=== PATIENT | female | born 2000 | race African-American/Black ===

== ENCOUNTER 2023-09-21 17:35 | Emergency (ER) | payer SELFPAY ==
[2023-09-21] MEDS ORDERED: NA CHLORIDE 0.9% 1,000 ML ONE (18:04)
[2023-09-21] MEDS ORDERED: KETOROLAC 30 MG/ML INJ ONE (18:04)
[2023-09-21] MEDS ORDERED: ONDANSETRON 4 MG/2 ML VIAL ONE (18:04)
[2023-09-21 18:05] LABS: Specific Gravity 1.014 (1.005-1.030)
[2023-09-21 18:25] LABS: Absolute Lymphocytes (CBC) 1.2 K/uL (0.7-4.9); Hematocrit 33.8 % (36.0-45.0); Lymphocytes % 4.7 % (15.3-44.8); MCV 78.2 fL (80-100); MPV 7.6 fL (7.6-11.3); Platelets 405 thou/uL (152-406); RBC Red Blood Cell Count 4.32 M/uL (3.86-4.86)
[2023-09-21 18:37] LABS: Specific Gravity 1.014 (1.005-1.030); Urine Bacteria 20-50 /HPF (<20); Urine Bilirubin NEGATIVE (Negative); Urine Blood 3+ (OVER) (Negative); Urine Clarity Extremely Turbid (Clear); Urine Color Light-Yellow (Yellow); Urine Glucose NEGATIVE (Negative); Urine Protein NEGATIVE (Negative); Urine RBC <5 /HPF (None Seen); Urine Urobilinogen Normal (Normal); Urine WBC Clump Rare /HPF (None Seen)
[2023-09-21 18:55] LABS: Blood Morphology Comment NOT SEEN (NOT SEEN); Platelet Estimate ADEQ
[2023-09-21 19:13] LABS: Albumin 3.9 g/dL (3.4-5.0); Bilirubin Total 0.3 mg/dL (0.2-1.0); Protein, Total 8.3 g/dL (6.4-8.2)
--- NOTE | 2023-09-21 20:24 | RAD REPORT ---
EXAM DESCRIPTION: CT - Abdomen Pelvis W Contrast - 09/21/2023 7:36 pm CLINICAL HISTORY: ABD PAIN COMPARISON: No comparisons TECHNIQUE: Thin cut axial CT imaging of the abdomen and pelvis was performed following intravenous a dministration of 100 mL Isovue 300. Multiplanar reformats were generated and reviewed. All CT scans are performed using dose optimization technique as appropriate and may include automated exposure control or mA/KV adjustment according to patient size. FINDINGS: No suspicious findings in the lung bases. The liver, spleen, adrenal glands, and pancreas show no suspicious findings. Gallbladder and biliary tree are also without suspicious finding. Symmetric renal function is seen with no hydronephrosis or suspicious renal mass. Large septated cystic lesions of both ovaries, measuring 10.1 x 5.7 cm on the right, and 10.5 x 5.1 c m on the left. No dilated bowel loops or bowel wall thickening. No free air, free fluid or inflammato ry stranding. No hernia, mass or bulky lymphadenopathy. The urinary bladder is without significant fi nding. No suspicious bony findings. IMPRESSION: Bilateral complex cystic lesions of both ovaries, exceeding 10 cm each. These could be f unctional/physiologic. Possibility of cystic neoplasm cannot be entirely excluded. Additional evaluat ion by pelvic ultrasound or MRI is recommended for better characterization.
--- NOTE | 2023-09-21 21:57 | ER ---
Nurse's Notes [facility] Name: Marilu Burnett Age: 22 yrs Sex: Female : 2000 Arrival Date: 09/21/2023 Time: 17:35 Bed 14 Private MD: Diagnosis: Other ovarian cysts;UTI/ Urinary tract infection, site not specified;Elevated white blood cell count Presentation: 09/21 17:41 Chief complaint: Patient states: "My stomach started hurting really bad this morning. cm10 The pain started on the right side and now its in the middle. I feel like i'm going to throw up.". Coronavirus screen: At this time, the client does not indicate any symptoms associated with coronavirus-19. Ebola Screen: No symptoms or risks identified at this time. Initial Sepsis Screen: Does the patient meet any 2 criteria? No. Patient's initial sepsis screen is negative. Does the patient have a suspected source of infection? No. Patient's initial sepsis screen is negative. Risk Assessment: Do you want to hurt yourself or someone else? Patient reports no desire to harm self or others. Onset of symptoms was September 21, 2023. 17:41 Method Of Arrival: Wheelchair cm10 17:41 Acuity: BLADIMIR 3 cm10 Triage Assessment: 17:43 General: Appears uncomfortable, Behavior is anxious, crying. Pain: Complains of pain in cm10 abdomen Pain currently is 10 out of 10 on a pain scale. EENT: No signs and/or symptoms were reported regarding the EENT system. Neuro: Hdez Agitation-Sedation Scale (RASS): 0 - Alert and Calm Level of Consciousness is awake, alert, obeys commands, Oriented to person, place, time, situation, Appropriate for age. Cardiovascular: Patient's skin is warm and dry. Respiratory: Airway is patent Respiratory effort is even, unlabored, Respiratory pattern is regular, symmetrical. GI: Abdomen is flat, non-distended, Abdomen is tender to palpation X 4 quads. GI: Reports nausea. : No signs and/or symptoms were reported regarding the genitourinary system. Derm: Skin is pink, warm \\T\\ dry. Musculoskeletal: Range of motion: intact in all extremities. Historical: - Allergies: 17:42 No Known Allergies; cm10 - Home Meds: 17:42 None [Active]; cm10 - PMHx: 17:42 None; cm10 - PSHx: 17:42 None; cm10 - Immunization history:: Adult Immunizations up to date. - Social history:: Smoking status: Patient reports the use of cigarette tobacco products, smokes one pack cigarettes per day. Screenin:00 [facility] ED Fall Risk Assessment (Adult) History of falling in the last 3 months, ko1 including since admission No falls in past 3 months (0 pts) Confusion or Disorientation No (0 pts) Intoxicated or Sedated No (0 pts) Impaired Gait No (0 pts) Mobility Assist Device Used No (0 pt) Altered Elimination No (0 pt) Score/Fall Risk Level 0 - 2 = Low Risk Oriented to surroundings, Maintained a safe environment, Educated pt \\T\\ family on fall prevention, incl call for assistance when getting out of bed, Assessed \\T\\ reinforced patient's understanding of fall precautions, Provided non-skid footwear, Hourly rounding (assess needs \\T\\ fall precautionary measures) done, Used ambulatory aids as needed (educated on \\T\\ assisted with), Used gait belt as appropriate. Abuse screen: Denies threats or abuse. Denies injuries from another. Nutritional screening: No deficits noted. Tuberculosis screening: No symptoms or risk factors identified. Assessment: 18:00 General: Appears distressed, uncomfortable, Behavior is cooperative, appropriate for ko1 age. Pain: Complains of pain in abdomen. Neuro: No deficits noted. Cardiovascular: No deficits noted. Respiratory: No deficits noted. GI: Bowel sounds present X 4 quads. Reports lower abdominal pain, nausea. 18:00 GI: Abdomen is flat, non-distended. GI: Abd is soft X 4 quads. : No deficits noted. ko1 EENT: No deficits noted. Derm: No deficits noted. Musculoskeletal: No deficits noted. 19:15 Reassessment: Patient appears in no apparent distress at this time. Patient and/or jw7 family updated on plan of care and expected duration. Pain level reassessed. Patient is alert, oriented x 3, equal unlabored respirations, skin warm/dry/pink. Patient states feeling better. 20:55 Reassessment: Patient appears in no apparent distress at this time. No changes from jw7 previously documented assessment. Patient and/or family updated on plan of care and expected duration. Pain level reassessed. Patient is alert, oriented x 3, equal unlabored respirations, skin warm/dry/pink. Vital Signs: 17:41 BP 128 / 85; Pulse 78; Resp 18; Temp 98.8; Pulse Ox 100% on R/A; Weight 65.77 kg; cm10 Height 5 ft. 6 in. ; Pain 10/10; 18:00 BP 146 / 93; Pulse 75; Resp 18; Pulse Ox 99% ; ko1 19:09 BP 127 / 76; Pulse 91; Resp 18; Pulse Ox 100% ; jw7 20:20 BP 107 / 69; Pulse 88; Resp 16; Pulse Ox 100% ; jw7 22:04 BP 104 / 56; Pulse 61; Resp 16; Pulse Ox 100% on R/A; kl 17:41 Body Mass Index 23.40 (65.77 kg, 167.64 cm) cm10 17:41 Pain Scale: Adult cm10 ED Course: 17:38 Patient arrived in ED. kj1 17:38 Naty Pierce FNP-C is PHCP. kb 17:38 Jarvis Salcido MD is Attending Physician. kb 17:42 Triage completed. cm10 17:43 Arm band placed on. cm10 17:45 Chantell Polanco, RN is Primary Nurse. ko1 18:00 Patient has correct armband on for positive identification. Placed in gown. Bed in low ko1 position. Call light in reach. Side rails up X2. Provided Education on: na. Pulse ox on. NIBP on. Door closed. Noise minimized. Lights dimmed. Warm blanket given. 18:00 Inserted saline lock: 22 gauge in left antecubital area, using aseptic technique. Blood ko1 collected. 18:16 CBC with Diff Sent. ko1 18:16 CMP Sent. ko1 18:16 Lipase Sent. ko1 19:38 CT Abd/Pelvis - IV Contrast Only In Process Unspecified. EDMS 20:11 Primary Nurse role handed off by Chantell Polanco, RN as6 20:54 BrysKinjal, RN is Primary Nurse. jw7 21:30 No apparent distress. Resting quietly. kl 21:40 US Transvaginal Study (Probe) In Process Unspecified. EDMS 22:04 No provider procedures requiring assistance completed. IV discontinued, intact, kl bleeding controlled, No redness/swelling at site. Pressure dressing applied. Administered Medications: 18:17 Drug: NS 0.9% IV 1000 ml IV at 1 bolus Per protocol; 1000 mL bolus Route: IV; Rate: 1 ko1 bolus; Site: left antecubital; 18:17 Drug: TORadol - Ketorolac IVP 15 mg IVP once Route: IVP; Site: left antecubital; ko1 18:17 Drug: Ondansetron IVP 4 mg IVP once; over 2 minutes Route: IVP; Site: left antecubital; ko1 Medication: 18:00 VIS not applicable for this client. ko1 Outcome: 21:57 Discharge ordered by . donavon 22:05 Discharged to home ambulatory, renee 22:05 Condition: stable 22:05 Discharge instructions given to patient, Instructed on discharge instructions, follow up and referral plans. medication usage, Demonstrated understanding of instructions, follow-up care, medications, Prescriptions given X 1, 22:05 Patient left the ED. renee Signatures: Dispatcher [employer] EDNaty Payne, MOTEL FRONT DESK ATTENDANT-C MOTEL FRONT DESK ATTENDANT-CkChristy Myles, RN RN Cindi Alexander1 Josr Herring RN RN as6 Kinjal Siegel RN RN jw7 Chantell Polanco RN RN ko1 Felicita Payton, RN RN cm10
--- NOTE | 2023-09-21 21:58 | EDPHYS ---
Physician Documentation [facility] Name: Marilu Burnett Age: 22 yrs Sex: Female : 2000 Arrival Date: 09/21/2023 Time: 17:35 Bed 14 Private MD: ED Physician Jarvis Salcido HPI: 09/21 21:57 This 22 yrs old Black Female presents to ER via Wheelchair with complaints of Abdominal kb Pain. 21:57 Patient is a 22-year-old female who presents for abdominal pain that started this kb morning. States pain started in right lower quadrant is moved to the middle of her abdomen. Reports nausea, denies vomiting, diarrhea and fever. Patient states she has had this pain before but it resolved on its own and she did not get it checked out.. Historical: - Allergies: 17:42 No Known Allergies; cm10 - Home Meds: 17:42 None [Active]; cm10 - PMHx: 17:42 None; cm10 - PSHx: 17:42 None; cm10 - Immunization history:: Adult Immunizations up to date. - Social history:: Smoking status: Patient reports the use of cigarette tobacco products, smokes one pack cigarettes per day. ROS: 21:57 Constitutional: Negative for fever, chills, and weight loss, kb 21:57 Abdomen/GI: Positive for abdominal pain, nausea, 21:57 All other systems are negative, Exam: 21:57 Constitutional: This is a well developed, well nourished patient who is awake, alert, kb and in no acute distress. Head/Face: Normocephalic, atraumatic. ENT: Moist Mucous membranes Cardiovascular: Regular rate Respiratory: Respirations even and unlabored. No increased work of breathing. Talking in full sentences Skin: Warm, dry with normal turgor. Normal color. MS/ Extremity: Pulses equal, no cyanosis. Neurovascular intact. Full, normal range of motion. Neuro: Awake and alert, GCS 15, oriented to person, place, time, and situation. Moves all extremities. Normal gait. 21:57 Abdomen/GI: Inspection: abdomen appears normal, Bowel sounds: normal, Palpation: moderate abdominal tenderness, in all quadrants, Vital Signs: 17:41 BP 128 / 85; Pulse 78; Resp 18; Temp 98.8; Pulse Ox 100% on R/A; Weight 65.77 kg; cm10 Height 5 ft. 6 in. ; Pain 10/10; 18:00 BP 146 / 93; Pulse 75; Resp 18; Pulse Ox 99% ; ko1 19:09 BP 127 / 76; Pulse 91; Resp 18; Pulse Ox 100% ; jw7 20:20 BP 107 / 69; Pulse 88; Resp 16; Pulse Ox 100% ; jw7 22:04 BP 104 / 56; Pulse 61; Resp 16; Pulse Ox 100% on R/A; kl 17:41 Body Mass Index 23.40 (65.77 kg, 167.64 cm) cm10 17:41 Pain Scale: Adult cm10 MDM: 17:40 Patient medically screened. kb 21:58 Differential diagnosis: appendicitis, bowel obstruction, non-specific abd pain, Ovarian kb Torsion, Ovarian cyst. Data reviewed: vital signs, nurses notes. Counseling: I had a detailed discussion with the patient and/or guardian regarding the historical points, exam findings, and any diagnostic results supporting the discharge/admit diagnosis, lab results, radiology results, the need for outpatient follow up, an OB/Gyne specialist, to return to the emergency department if symptoms worsen or persist or if there are any questions or concerns that arise at home. ED course: Patient request to be discharged at this time. States she is feeling better and wants to go home. Educated that we do not have the radiologist reading of ultrasound at this time but patient request to go home now.. 09/21 17:43 Order name: CBC with Diff; Complete Time: 18:57 kb 09/21 17:43 Order name: CMP; Complete Time: 19:14 kb 09/21 17:43 Order name: Lipase; Complete Time: 19:14 kb 09/21 17:43 Order name: Test, Urine; Complete Time: 18:42 kb 09/21 17:43 Order name: Urinalysis w/ reflexes; Complete Time: 18:42 kb 09/21 18:41 Order name: Urine Culture EDMS 09/21 18:55 Order name: Manual Differential; Complete Time: 18:57 EDMS 09/21 17:43 Order name: CT Abd/Pelvis - IV Contrast Only; Complete Time: 20:38 kb 09/21 20:39 Order name: US Transvaginal Study (Probe) kb 09/21 17:43 Order name: IV Saline Lock; Complete Time: 18:16 kb 09/21 17:43 Order name: Labs collected and sent; Complete Time: 18:16 kb Administered Medications: 18:17 Drug: NS 0.9% IV 1000 ml IV at 1 bolus Per protocol; 1000 mL bolus Route: IV; Rate: 1 ko1 bolus; Site: left antecubital; 18:17 Drug: TORadol - Ketorolac IVP 15 mg IVP once Route: IVP; Site: left antecubital; ko1 18:17 Drug: Ondansetron IVP 4 mg IVP once; over 2 minutes Route: IVP; Site: left antecubital; ko1 Disposition Summary: 09/21/23 21:57 Discharge Ordered Notes: Location: Home kb Condition: Stable kb Diagnosis - Other ovarian cysts kb - UTI/ Urinary tract infection, site not specified kb - Elevated white blood cell count kb Followup: kb - With: Emergency Department - When: As needed - Reason: Worsening of condition Followup: kb - With: Private Physician - When: 2 - 3 days - Reason: Recheck today's complaints, Continuance of care, Re-evaluation by your physician Discharge Instructions: - Discharge Summary Sheet kb - Urinary Tract Infection, Adult, [id number] kb - Abdominal Pain, Adult, [id number] kb - Ovarian Cyst, [id number] kb Forms: - Medication Reconciliation Form kb - Thank You Letter kb - Antibiotic Education kb - Prescription Opioid Use kb - Patient Portal Instructions kb - Leadership Thank You Letter kb Prescriptions: - Macrobid 100 mg Oral Capsule - take 1 capsule ORAL route every 12 hours for 10 days; 20 capsule; Refills: 0, kb Product Selection Permitted Signatures: Dispatcher [employer] Naty Domínguez, TINNING MACHINE SET UP OPERATOR-C TINNING MACHINE SET UP OPERATOR-Chantell Landin RN RN ko1 Felicita Payton RN RN cm10 Corrections: (The following items were deleted from the chart) 21:59 21:57 Abdominal pain, Generalized kb kb
--- NOTE | 2023-09-21 22:18 | RAD REPORT ---
EXAM DESCRIPTION: US - Transvaginal Study Probe - 09/21/2023 9:38 pm CLINICAL HISTORY: ABD PAIN COMPARISON: Abdomen Pelvis W Contrast dated 09/21/2023 TECHNIQUE: Sonographic grayscale and color flow images of the pelvis were obtained. FINDINGS: The uterus is normal in size, shape and echotexture. The uterus measures 6.1 cm in length. The endometrial stripe measures 1 mm, normal. Both ovaries are markedly enlarged, with numerous multiloculated cystic lesions with septations. The right ovary measures 9.6 x 7.0 x 7.1 cm. The left ovary measures 9.6 x 5.3 x 4.7 cm. Cysts demonstr ate mild complexity, with most pronounced layering debris within the dominant cyst within the right o vary, occupying most of the ovary. No septal thickening, mural solid nodules, or other solid lesions. Normal Doppler blood flow was demonstrated to both ovaries. No significant pelvic ascites. IMPRESSION: Bilateral large multiloculated ovarian cysts with septations, with some debris, suggesti ng hemorrhagic cysts. Other possibilities such as physiologic cysts and endometriomas are probably le ss likely. Given the size of the lesions, short-term follow-up sonographic evaluation in 6-10 weeks i s recommended.
== END 2023-09-21 22:05 | disposition home or self-care (01) ==
LOC: ER 17:35
DX: N39.0 Urinary tract infection, site not specified (principal); N83.299 Other ovarian cyst, unspecified side; D72.829 Elevated white blood cell count, unspecified
CPT/HCPCS: 36415; 74177; 76830; 80053; 81001; 81025; 83690; 85025; 87086; 87088; J2405; J7030; Q9967

== ENCOUNTER 2024-07-27 07:43 | Emergency (ER) | payer OTHER, SELFPAY ==
[2024-07-27] MEDS ORDERED: ONDANSETRON 4 MG/2 ML VIAL ONE (08:21)
[2024-07-27] MEDS ORDERED: KETOROLAC 30 MG/ML INJ ONE (08:21)
[2024-07-27] MEDS ORDERED: NA CHLORIDE 0.9% 1,000 ML ONE ×2 (08:21→11:41)
[2024-07-27] MEDS ORDERED: MORPHINE 4 MG/ML SYR ONE (08:21)
[2024-07-27 08:54] LABS: Specific Gravity 1.019 (1.005-1.030)
[2024-07-27 08:56] LABS: Specific Gravity 1.019 (1.005-1.030); Transitional Epithelial <5 /HPF (None Seen); Urine Bacteria <20 /HPF (<20); Urine Bilirubin NEGATIVE (Negative); Urine Blood Negative (Negative); Urine Clarity Extremely Turbid (Clear); Urine Color Yellow (Yellow); Urine Culture Reflex Order NOT NEEDED; Urine Glucose NEGATIVE (Negative); Urine Ketones NEGATIVE (Negative); Urine Microscopic Reflex YN ORDER UMIC; Urine Mucus 2+ /HPF (None Seen); Urine Nitrite NEGATIVE (Negative); Urine Protein 1+ (Negative); Urine RBC <5 /HPF (None Seen); Urine Urobilinogen Normal (Normal); Urine pH 5.5 (5.0-7.0)
[2024-07-27 09:03] LABS: Absolute Basophils 0.1 K/uL (0-0.5); Absolute Lymphocytes (CBC) 3.4 K/uL (0.7-4.9); Absolute Monocytes 1.6 K/uL (0.1-1.3); Absolute Neutrophil 10.9 K/uL (1.8-8.0); Basophils % 0.8 % (0-1.3); Eosinophils % 0.1 % (0-4.4); Hematocrit 24.8 % (36.0-45.0); Hemoglobin 7.6 g/dL (12.0-15.0); Lymphocytes % 21.2 % (15.3-44.8); MCH 21.9 pg (27.0-35.0); MCHC 30.6 g/dL (32.0-36.0); MCV 71.8 fL (80-100); MPV 6.7 fL (7.6-11.3); Monocytes % 9.9 % (3.3-12.3); Platelets 659 thou/uL (152-406); RBC Red Blood Cell Count 3.46 M/uL (3.86-4.86); Red Cell Distribution Width 24.3 % (12.1-15.2)
[2024-07-27 09:12] LABS: Albumin 2.5 g/dL (3.4-5.0); Albumin/Globulin Ratio 0.4 (1.1-1.8); Bilirubin Total 0.6 mg/dL (0.2-1.0); Globulin 7.1 g/dL (2.3-3.5); Protein, Total 9.6 g/dL (6.4-8.2)
--- NOTE | 2024-07-27 09:16 | RAD REPORT ---
EXAM DESCRIPTION: CTAbdomen Pelvis W Contrast - 07/27/2024 9:05 am CLINICAL HISTORY: Abdominal pain. ABD PAIN COMPARISON: Abdomen Pelvis W Contrast dated 06/24/2024; Abdomen Pelvis W Contrast dated 3 TECHNIQUE: Biphasic CT imaging of the abdomen and pelvis was performed with 100 ml non-ionic IV cont rast. All CT scans are performed using dose optimization technique as appropriate and may include automated exposure control or mA/KV adjustment according to patient size. FINDINGS: The lung bases are clear. The liver, spleen, pancreas, adrenal glands and kidneys are within normal limits. No bowel obstruction, free air, free fluid or abscess. Normal-appearing appendix. Large thick walled cystic collections again seen in the pelvis, the largest the left measuring up to 10 cm. The superior slightly smaller than on the comparative study but are still quite large and significant. These jose ections are thick-walled and containing air and fluid suggesting infection however neoplastic process is also within the differential. No evidence of significant lymphadenopathy. No suspicious bony findings. IMPRESSION: Again noted are very large and thick wall cystic pelvic masses, measuring up to 10 cm on the left. These appear very similar to prior study and may represent chronic pelvic abscesses or roberto plasm. Elsewhere, no acute finding is seen.
[2024-07-27 10:34] LABS: Anisocytosis 1+; Blood Morphology Comment NOTED (NOT SEEN); Hypochromasia 1+; Microcytosis 1+; Platelet Estimate INCR; Polychromasia 1+; White Blood Cell Scan OK (OK)
[2024-07-27] MEDS ORDERED: NA CHLORIDE 0.9% 100 ML ONE (11:16)
[2024-07-27] MEDS ORDERED: PIPERACIL/TAZO 3.375 GM VIAL IV ONE (11:17)
--- NOTE | 2024-07-27 11:44 | ER ---
Nurse's Notes [facility] Name: Marilu Burnett Age: 23 yrs Sex: Female : 2000 Arrival Date: 07/27/2024 Time: 07:43 Bed 5 Private MD: Diagnosis: Pelvic abscess;Sepsis Presentation: 07/27 07:52 Chief complaint: Patient states: Pelvic pain for months. States she had a near syncope ll1 event this morning. Has had pelvic infections recently. Coronavirus screen: Client denies travel out of the [place] in the last 14 days. At this time, the client does not indicate any symptoms associated with coronavirus-19. Ebola Screen: Patient denies travel to an Ebola-affected area in the 21 days before illness onset. Initial Sepsis Screen: Does the patient meet any 2 criteria? No. Patient's initial sepsis screen is negative. Does the patient have a suspected source of infection? No. Patient's initial sepsis screen is negative. Risk Assessment: Do you want to hurt yourself or someone else? Patient reports no desire to harm self or others. Onset of symptoms was July 27, 2024. 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 - Infectious Disease History:: Denies. - Social history:: Smoking status: Patient reports the use of cigarette tobacco products, smokes one-half pack cigarettes per day. - Family history:: not pertinent. Screenin:33 [facility] [place] ED Fall Risk Assessment (Adult) History of falling in the last 3 months, dd2 including since admission No falls in past 3 months (0 pts) Confusion or Disorientation No (0 pts) Intoxicated or Sedated No (0 pts) Impaired Gait No (0 pts) Mobility Assist Device Used No (0 pt) Altered Elimination No (0 pt) Score/Fall Risk Level 0 - 2 = Low Risk Oriented to surroundings, Maintained a safe environment, Hourly rounding (assess needs \T\ fall precautionary measures) done. Abuse screen: Denies threats or abuse. Nutritional screening: No deficits noted. Tuberculosis screening: No symptoms or risk factors identified. Assessment: 08:00 General: Appears comfortable, Behavior is calm, cooperative. Pain: Denies pain. Neuro: aa5 Level of Consciousness is awake, alert, obeys commands, Oriented to person, place, time, situation. Cardiovascular: Heart tones S1 S2 present Rhythm is regular. Respiratory: Airway is patent Respiratory effort is even, unlabored, Respiratory pattern is regular, symmetrical. GI: No signs and/or symptoms were reported involving the gastrointestinal system. Patient currently denies nausea, vomiting. : Denies burning with urination, discharge, inability to void, urinary frequency, vaginal bleeding. EENT: No signs and/or symptoms were reported regarding the EENT system. Derm: Skin is dry, Skin is pale, Skin temperature is warm. Musculoskeletal: Range of motion: intact in all extremities. 08:33 General: Appears in no apparent distress. Behavior is calm, cooperative. Pain: dd2 Complains of pain in suprapubic area. Neuro: Level of Consciousness is awake, alert, obeys commands, Oriented to person, place, time, situation, Moves all extremities. Cardiovascular: Denies chest pain, Patient's skin is warm and dry. Respiratory: Airway is patent. GI: Abdomen is flat, Abdomen is tender to palpation in suprapubic area Reports nausea. : Urine is maritza Reports pain in suprapubic area. EENT: No deficits noted. No signs and/or symptoms were reported regarding the EENT system. Derm: Skin is pale, Skin temperature is warm. Musculoskeletal: Range of motion: intact in all extremities. 08:36 Reassessment: Pt currently refused medication for pain and nausea. . aa5 10:30 Neuro: Level of Consciousness is awake, alert, obeys commands, Oriented to person, aa5 place, time, situation. Respiratory: Airway is patent Respiratory effort is even, unlabored, Respiratory pattern is regular, symmetrical. Derm: Skin is dry, Skin is pale, Skin temperature is warm. 11:42 Neuro: Level of Consciousness is awake, alert, obeys commands, Oriented to person, aa5 place, time, situation. Respiratory: Airway is patent Respiratory effort is even, unlabored, Respiratory pattern is regular, symmetrical. Derm: Skin is dry, Skin is pale, Skin temperature is warm. 11:42 Reassessment: Pt sitting up in bed, denies any complaints at this time, pt's family at [facility] bedside. . 12:30 Neuro: Level of Consciousness is awake, alert, obeys commands, Oriented to person, aa place, time, situation. Respiratory: Airway is patent Respiratory effort is even, unlabored, Respiratory pattern is regular, symmetrical. Derm: Skin is dry, Skin is pale, Skin temperature is warm. 13:30 Neuro: Level of Consciousness is awake, alert, obeys commands, Oriented to person, aa5 place, time, situation. Respiratory: Airway is patent Respiratory effort is even, unlabored, Respiratory pattern is regular, symmetrical. Derm: Skin is dry, Skin is pale, Skin temperature is warm. 13:30 Reassessment: Pt sitting up in bed. Pt's family at bedside. Pending transfer to another [facility] facility. . 15:22 Reassessment: Patient appears in no apparent distress at this time. Patient and/or db family updated on plan of care and expected duration. Pain level reassessed. Patient is alert, oriented x 3, equal unlabored respirations, skin warm/dry/pink. 15:22 Reassessment: CALLED [facility] TO GIVE PT REPORT. PHONE WAS DISCONNECTED. WILL CALL BACK. db 15:25 Reassessment: CALLED TO GIVE PT REPORT. db 15:34 Reassessment: REPORT GIVEN TO KEILY JANG. db Vital Signs: 07:52 BP 103 / 74; Pulse 100; Resp 16; Pulse Ox 100% ; Weight 58.97 kg; Height 5 ft. 6 in. ; ll1 Pain 0/10; 10:30 BP 99 / 63; Pulse 83; Resp 16 S; Temp 98.2(O); Pulse Ox 100% on R/A; db 11:20 BP 98 / 58; Pulse 88; Resp 16 S; Pulse Ox 98% on R/A; aa5 12:40 BP 100 / 52; Pulse 78; Resp 16 S; Pulse Ox 99% on R/A; aa5 13:30 BP 92 / 53; Pulse 72; Resp 16; Temp 98.2(O); Pulse Ox 99% on R/A; db 14:15 BP 110 / 59; Pulse 85; Resp 16; Pulse Ox 100% ; db 15:00 BP 108 / 64; Pulse 82; Resp 16; Pulse Ox 100% on R/A; db 15:32 Temp 98(O); db 07:52 Body Mass Index 20.98 (58.97 kg, 167.64 cm) ll1 07:52 Pain Scale: Adult ll1 ED Course: 07:49 Patient arrived in ED. ra3 07:50 Omkar Verde MD is Attending Physician. rt 07:54 Triage completed. ll1 07:55 Arm band placed on. ll1 08:10 Jessenia Jones, KEILY is Primary Nurse. aa5 08:32 CBC with Diff Sent. dd2 08:32 CMP Sent. dd2 08:32 Lipase Sent. dd2 08:32 Test, Urine Sent. dd2 08:32 Urinalysis w/ reflexes Sent. dd2 08:33 Patient has correct armband on for positive identification. Bed in low position. Call dd2 light in reach. Side rails up X 1. Provided Education on: call light, labs, procedures, medications. Door closed. Warm blanket given. Verbal reassurance given. 08:33 No provider procedures requiring assistance completed. Initial lab(s) drawn, by me, dd2 sent to lab. Urine collected: clean catch specimen, maritza colored. Inserted saline lock: 20 gauge in left antecubital area, using aseptic technique. Blood collected. Flushed with 10 mL NS. 09:06 CT Abd/Pelvis - IV Contrast Only In Process Unspecified. EDMS 10:53 First set of blood cultures drawn by me. bc6 10:56 Blood Culture Adult (2) Sent. bc6 10:56 Lactate w/ 2H reflex if indic. Sent. bc6 11:05 Second set of blood cultures drawn by me. bc6 11:42 spoke with Santa at [facility] Transfer center to initiate to [facility]. bc6 13:14 PT Was declined at [facility] due to capacity. Initiated transfer with [facility] transfer center bc6 spoke with Slade. 13:20 Pt was declined at [facility] due to capacity. bc6 13:27 Initiated transfer with [facility] transfer center spoke with Edelmira. \[id number] Doc to Doc was bc6 initated [address] Dr. Verde and Gyno from [facility]. 15:48 [facility] here for transfer. bc6 15:55 Patient transferred, IV remains in place. aa5 Administered Medications: 08:35 Drug: NS 0.9% IV 1000 ml IV at 1 bolus Per protocol; 1000 mL bolus Route: IV; Rate: 1 aa5 bolus; Site: left antecubital; 09:30 Follow up: IV Status: Completed infusion; IV Intake: 1000ml aa5 09:43 Not Given (Patient Refused): TORadol - [id number] mg IVP once aa5 09:43 Not Given (Patient Refused): ondansetron 4 mg IVP once; over 2 minutes aa5 09:43 Not Given (Patient Refused): morphineor iv 4 mg IVP once over 4 mins aa5 11:24 Drug: Piperacillin-Tazobactam IVPB 3.375 grams IVPB once over 60 mins; (mix in NS 100 db mL) Route: IVPB; Infused Over: 60 mins; Site: left antecubital; 11:43 Follow up: Response: No adverse reaction aa5 12:24 Follow up: IV Status: Completed infusion; IV Intake: 100ml aa5 11:43 Drug: NS 0.9% IV 1000 ml IV at 1 bolus Per protocol; 1000 mL bolus Route: IV; Rate: 1 aa5 bolus; Site: right antecubital; 12:45 Follow up: Response: No change in condition; IV Status: Completed infusion; IV Intake: db 100ml Medication: 08:33 VIS not applicable for this client. dd2 Intake: 09:30 IV: 1000ml; Total: 1000ml. aa5 12:24 IV: 100ml; Total: 1100ml. aa5 12:45 IV: 100ml; Total: 1200ml. db Outcome: 11:43 ER care complete, transfer ordered by . rt 15:55 Transferred by ground EMS Transfer form completed. X-rays sent w/ patient. Note: aa5 Transferred to [facility]. Report given to [facility] 15:55 Condition: stable 15:55 Instructed on the need for transfer, Demonstrated understanding of instructions, 16:01 Patient left the ED. aa5 Signatures: Dispatcher [employer] EDMS Jessenia Jones RN RN aa5 Tammi Garcia RN RN ll1 Haydee Will RN RN db Omkar Verde MD MD rt Rochelle Topete 6 Jennifer Machuca ra3 FREDDY CAMPBELL, RN RN dd2 Corrections: (The following items were deleted from the chart) 15:31 10:30 BP 99 / 63; Pulse 83bpm; Resp 16bpm; Spontaneous; Pulse Ox 100% RA; aa5 db 15:33 13:30 BP 92 / 53; Pulse 72bpm; Resp 16bpm; Pulse Ox 99% RA; db db
--- NOTE | 2024-07-27 11:44 | EDPHYS ---
Physician Documentation [facility] Name: Marilu Burnett Age: 23 yrs Sex: Female : 2000 Arrival Date: 07/27/2024 Time: 07:43 Bed 5 Private MD: ED Physician Omkar Verde HPI: 07/27 08:15 This 23 yrs old Black Female presents to ER via EMS with complaints of Pelvic Pain. rt 08:15 Patient presents to the ED with lower abdominal pain and pelvic pain for more than a rt month. Patient was seen in the ED about a month ago, was diagnosed with cystic structure, infection versus neoplasm. Was prescribed antibiotics, left. States that she initially improved, however, is worsened. Reports significant weight loss, had a near syncopal episode today. Denies acute complaints, symptoms are moderate in severity, no other aggravating relieving factors. 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 - Infectious Disease History:: Denies. - Social history:: Smoking status: Patient reports the use of cigarette tobacco products, smokes one-half pack cigarettes per day. - Family history:: not pertinent. ROS: 08:15 Constitutional: Negative for fever, chills, and weight loss, Cardiovascular: Negative rt for chest pain, palpitations, and edema, Respiratory: Negative for shortness of breath, cough, wheezing, and pleuritic chest pain, MS/Extremity: Negative for injury and deformity, Skin: Negative for injury, rash, and discoloration, 08:15 Constitutional: Positive for malaise, weight loss, 08:15 Abdomen/GI: Positive for abdominal pain, nausea, 08:15 Neuro: Positive for near syncope, Negative for headache, Exam: 08:15 Constitutional: This is a well developed, well nourished patient who is awake, alert, rt and in no acute distress. Chest/axilla: Normal chest wall appearance and motion. Nontender with no deformity. No lesions are appreciated. Cardiovascular: Regular rate and rhythm with a normal S1 and S2. No gallops, murmurs, or rubs. Normal PMI, no JVD. No pulse deficits. Respiratory: Lungs have equal breath sounds bilaterally, clear to auscultation and percussion. No rales, rhonchi or wheezes noted. No increased work of breathing, no retractions or nasal flaring. Skin: Warm, dry with normal turgor. Normal color with no rashes, no lesions, and no evidence of cellulitis. MS/ Extremity: Pulses equal, no cyanosis. Neurovascular intact. Full, normal range of motion. Neuro: Awake and alert, GCS 15, oriented to person, place, time, and situation. Cranial nerves II-XII grossly intact. Motor strength 5/5 in all extremities. Sensory grossly intact. Cerebellar exam normal. Normal gait. 08:15 Abdomen/GI: Mild tenderness to the lower quadrants without rebound, guarding, distention, 11:05 ECG was reviewed by the Attending Physician. rt Vital Signs: 07:52 BP 103 / 74; Pulse 100; Resp 16; Pulse Ox 100% ; Weight 58.97 kg; Height 5 ft. 6 in. ; ll1 Pain 0/10; 10:30 BP 99 / 63; Pulse 83; Resp 16 S; Temp 98.2(O); Pulse Ox 100% on R/A; db 11:20 BP 98 / 58; Pulse 88; Resp 16 S; Pulse Ox 98% on R/A; aa5 12:40 BP 100 / 52; Pulse 78; Resp 16 S; Pulse Ox 99% on R/A; aa5 13:30 BP 92 / 53; Pulse 72; Resp 16; Temp 98.2(O); Pulse Ox 99% on R/A; db 14:15 BP 110 / 59; Pulse 85; Resp 16; Pulse Ox 100% ; db 15:00 BP 108 / 64; Pulse 82; Resp 16; Pulse Ox 100% on R/A; db 15:32 Temp 98(O); db 07:52 Body Mass Index 20.98 (58.97 kg, 167.64 cm) ll1 07:52 Pain Scale: Adult ll1 MDM: 08:07 Patient medically screened. rt 11:51 Differential Diagnosis Pelvic abscess, pelvic neoplasm. Data reviewed: vital signs, rt nurses notes, lab test result(s), EKG, radiologic studies. Consideration of Admission/Observation Escalation of care including admission/observation considered. Patient requires transfer for gynecologic evaluation. I considered the following discharge prescriptions or medication management in the emergency department Medications were administered in the Emergency Department. See MAR. Independent interpretation of the following test(s) in the Emergency Department CT Scan: My interpretation is Cystic masses versus abscesses seen on my interpretation of CT scan images. Test considered but Not performed: Ultrasound Abnormalities clearly seen on CT scan, emergent ultrasound is not indicated. Counseling: I had a detailed discussion with the patient and/or guardian regarding the historical points, exam findings, and any diagnostic results supporting the discharge/admit diagnosis, lab results, radiology results, the need to transfer to another facility. Response to treatment: the patient's symptoms have mildly improved after treatment. 11:52 Post IV fluid administration reassessment for Sepsis: Sepsis focused reassessment rt complete. Focused assessment performed: July 27, 2024 at 11:52 Lungs: noted to be clear bilaterally. Cardio: Cardiovascular exam improved from previous exam. Heart rate and blood pressure have improved. 07/27 08:14 Order name: CBC with Diff; Complete Time: 11:38 rt 07/27 08:14 Order name: CMP; Complete Time: 10:32 rt 07/27 08:14 Order name: Lipase; Complete Time: 10:32 rt 07/27 08:14 Order name: Test, Urine; Complete Time: 10:32 rt 07/27 08:14 Order name: Urinalysis w/ reflexes; Complete Time: 10:32 rt 07/27 09:07 Order name: CBC Smear Scan; Complete Time: 11:38 EDMS 07/27 10:32 Order name: Blood Culture Adult (2) rt 07/27 10:32 Order name: Lactate w/ 2H reflex if indic.; Complete Time: 11:38 rt 07/27 08:14 Order name: CT Abd/Pelvis - IV Contrast Only rt 07/27 08:14 Order name: IV Saline Lock; Complete Time: 08:32 rt 07/27 08:14 Order name: Labs collected and sent; Complete Time: 08:32 rt 07/27 10:32 Order name: Cardiac monitoring; Complete Time: 11:12 rt 07/27 10:32 Order name: EKG - Nurse/Tech; Complete Time: 10:56 rt 07/27 10:32 Order name: IV Saline Lock - Large Bore; Complete Time: 11:12 rt 07/27 10:32 Order name: O2 Per Protocol; Complete Time: : rt 07/27 10:32 Order name: O2 Sat Monitoring; Complete Time: : rt 07/27 10:32 Order name: Vital Signs; Complete Time: : rt EC:05 Rate is 78 beats/min. Rhythm is regular, Normal Sinus Rhythm with No ectopy. QRS [place] rt is Normal. ME interval is normal. QRS interval is normal. QT interval is normal. No Q waves. T waves are Normal. No ST changes noted. Interpreted by me. Administered Medications: 08:35 Drug: NS 0.9% IV 1000 ml IV at 1 bolus Per protocol; 1000 mL bolus Route: IV; Rate: 1 aa5 bolus; Site: left antecubital; 09:30 Follow up: IV Status: Completed infusion; IV Intake: 1000ml aa5 09:43 Not Given (Patient Refused): TORadol - mg IVP once aa5 09:43 Not Given (Patient Refused): ondansetron 4 mg IVP once; over 2 minutes aa5 09:43 Not Given (Patient Refused): morphineor iv 4 mg IVP once over 4 mins aa5 11:24 Drug: Piperacillin-Tazobactam IVPB 3.375 grams IVPB once over 60 mins; (mix in NS 100 db mL) Route: IVPB; Infused Over: 60 mins; Site: left antecubital; 11:43 Follow up: Response: No adverse reaction aa5 12:24 Follow up: IV Status: Completed infusion; IV Intake: 100ml aa5 11:43 Drug: NS 0.9% IV 1000 ml IV at 1 bolus Per protocol; 1000 mL bolus Route: IV; Rate: 1 aa5 bolus; Site: right antecubital; 12:45 Follow up: Response: No change in condition; IV Status: Completed infusion; IV Intake: db 100ml Disposition Summary: 07/27/24 11:43 Transfer Ordered Notes: Reason: Higher level of care rt Condition: Stable rt Problem: an ongoing problem rt Symptoms: are unchanged rt Transfer Location: [facility] System(07/27/24 13:43) rt Accepting Physician: (07/27/24 16:01) aa5 Diagnosis - Pelvic abscess rt - Sepsis rt Forms: - Medication Reconciliation Form rt - SBAR form rt Critical care time excluding procedures: 14:22 Critical care time: Bedside Care: 30 minutes, Consultation: 15 minutes. Total time: 45 rt minutes Signatures: Dispatcher [employer] Jessenia Fletcher, RN RN aa5 Tammi Garcia RN RN ll1 Haydee Will RN RN db Omkar Verde MD MD rt FREDDY CAMPBELL RN RN dd2 Corrections: (The following items were deleted from the chart) 10:41 10:32 Olgauchanitha pham. rt aa5 13:43 11:43 rt rt 13:43 11:43 Other [facility] rt rt 16:01 13:43 rt aa5
[2024-07-27 16:55] VITALS: O2SAT 100
[2024-07-27 16:57] VITALS: BP 108/64
[2024-07-27 16:58] VITALS: TEMP 98
--- NOTE | 2024-07-28 14:40 | EKG ---
Test Date: 2024-07-27 Test Time: 11:02:55 Honing Machine Operator: RADHA MEASUREMENT RESULTS: Intervals: Rate: 78 WI: 130 QRSD: 68 QT: 424 QTc: 483 [place]: P: 83 WI: 130 QRS: 76 T: 64 INTERPRETIVE STATEMENTS: Normal sinus rhythm Prolonged QT Abnormal ECG No previous ECG available for comparison Electronically Signed On 07-28-24 14:38:49 CDT by Jerry Chino
== END 2024-07-27 16:01 | disposition short-term general hospital (02) ==
LOC: ER 07:43
DX: N73.9 Female pelvic inflammatory disease, unspecified (principal); A41.9 Sepsis, unspecified organism
CPT/HCPCS: 36415; 74177; 80053; 81001; 81025; 83605; 83690; 85025; 87040; 93005; 96361; 96365; 99285; J2405; J2543; J7030; Q9967